=== PATIENT | female | born 1985 | race Caucasian/White ===

== ENCOUNTER 2020-01-23 22:27 | Emergency (ER) | payer SELFPAY ==
[2020-01-23] MEDS ORDERED: ONDANSETRON INJ 4 MG/2 ML VIAL IV ONE (22:51)
[2020-01-23] MEDS ORDERED: SODIUM CHLORIDE 0.9% 1000ML 1,000 ML IVS ONE (22:51)
--- NOTE | 2020-01-23 22:54 | ED.PDOC ---
History of Present Illness - General Chief Complaint: General Stated Complaint: feels dehydrated, awaiting COVID results Time Seen by Provider: 01/23/20 22:45 Source: patient, Vital Signs reviewed, family Exam Limitations: no limitations - History of Present Illness Initial Comments: Patient is a 34-year-old female who presents to the ED feeling dehydrated. States she has had nausea, diarrhea, body aches, low-grade fever to 99 degrees and mild cough for the past 8 days. She was tested for COVID-19 2 days ago but she does not have the results yet. Today she has felt fatigued and dehydrated so came to ED for further evaluation. Reports history of hypothyroid but has not been on thyroid medicine in 2 months. States she has an IUD in place and does not have periods regularly. Abdominal pain, dysuria or near syncope. Allergies/Adverse Reactions: Allergies NO KNOWN ALLERGY Allergy (Verified 01/23/20 22:47) Home Medications: Ambulatory Orders Potassium Chloride Tab [K-Dur] 20 meq PO DAILY #10 tab 01/23/20 Prednisone 40 mg PO DAILY 5 Days #10 tab 01/23/20 Review of Systems - Review of Systems Constitutional: States: fever - low grade, malaise. Denies: chills EENTM: Denies: blurred vision, ear pain, nose congestion Respiratory: States: cough, short of breath Cardiology: Denies: chest pain, palpitations, syncope Gastrointestinal/Abdominal: States: diarrhea, nausea. Denies: abdominal pain, vomiting Genitourinary: Denies: dysuria Musculoskeletal: States: muscle pain Neurological: States: numbness. Denies: headache, paresthesia All other Systems: Reviewed and Negative Family Medical History - Family History Mother Living Status: Hx Family Hypertension: Yes Hx Family Diabetes: Yes Physical Exam - Physical Exam General Appearance: Alert, No apparent distress, Other - resting comfortably on the bed Eye Exam: bilateral normal - PERRL Ears, Nose, Throat: other - moist MM Respiratory: chest non-tender, lungs clear, normal breath sounds, no respiratory distress, no accessory muscle use Cardiovascular/Chest: regular rate, rhythm, no edema Gastrointestinal/Abdominal: non tender, soft, no pulsatile mass, other - NTTP in all quadrants Back Exam: no CVA tenderness Extremity: normal range of motion, non-tender, normal inspection, no pedal edema Neurologic: no motor/sensory deficits, alert, normal mood/affect, oriented x 3 Skin Exam: normal color, warm/dry Progress - Progress Progress: 01/23/20 23:54 Patient presents with 1 week history of low-grade fever, myalgias, diarrhea and mild cough. Vital signs are reassuring. Chest x-ray is unremarkable. Labs show mild hypokalemia that will treat with potassium supplement and she will need to follow-up with PCP for lab recheck within 1 week. She does have a history of hypothyroid and has been off her medication for 2 months. TSH is mildly elevated in ED and have asked her to follow-up with PCP for recheck and medication refill. I have discussed possibility of COVID-19 infection and will treat with course of steroids. She has no hypoxia or respiratory distress and feels comfortable going home and follow-up with her PCP in 1 to 2 days. Strict return precautions given. - Results/Orders Results/Orders: EKG- sinus bradycardia, rate 52, nml interval, no ST abnormality CHEST XRAY CLINICAL HISTORY: short of breath COMPARISON: None. TECHNIQUE: XR CHEST 1 VIEW 01/23/2020 10:50 PM CDT FINDINGS: Cardiac silhouette is normal in size. Lungs are clear without consolidation, atelectasis, mass or edema. There is no pleural effusion. There is no pneumothorax. There are no acute osseous findings. IMPRESSION: Clear lungs. 01/23/20 22:50 IV:Start .ONCE 01/23/20 23:00 EKG .ONCE Laboratory Results - last 24 hr 01/23/20 01/23/20 01/23/20 23:08 23:08 23:08 WBC 5.3 RBC 4.27 Hgb 13.1 Hct 38.0 MCV 89.0 MCH 30.6 MCHC 34.4 RDW 12.7 Plt Count 183 MPV 8.7 Absolute Neuts (auto) 2.20 Absolute Lymphs (auto) 2.60 Absolute Monos (auto) 0.30 Absolute Eos (auto) 0.10 Absolute Basos (auto) 0.10 Neutrophils % 41.8 L Lymphocytes % 49.5 Monocytes % 5.5 Eosinophils % 1.7 Basophils % 1.5 Sodium 137 Potassium 3.0 L Chloride 102 Carbon Dioxide 26 Anion Gap 12.0 BUN 12 Creatinine 0.59 L BUN/Creatinine Ratio 20.3 H Random Glucose 100 Serum Osmolality 273.7 L Calcium 9.1 Total Bilirubin 1.4 H AST 14 ALT 12 Alkaline Phosphatase 33 L Serum Total Protein 6.8 Albumin 4.0 Globulin 2.8 Albumin/Globulin Ratio 1.4 TSH Serum HCG, Qual Negative Urine Color Urine Appearance Urine pH Ur Specific [place] Urine Protein Urine Glucose (UA) Urine Ketones Urine Blood Urine Nitrite Urine Bilirubin Urine Urobilinogen Ur Leukocyte Esterase Urine RBC Urine WBC Ur Epithelial Cells Urine Bacteria 01/23/20 01/23/20 23:08 23:08 WBC RBC Hgb Hct MCV MCH MCHC RDW Plt Count MPV Absolute Neuts (auto) Absolute Lymphs (auto) Absolute Monos (auto) Absolute Eos (auto) Absolute Basos (auto) Neutrophils % Lymphocytes % Monocytes % Eosinophils % Basophils % Sodium Potassium Chloride Carbon Dioxide Anion Gap BUN Creatinine BUN/Creatinine Ratio Random Glucose Serum Osmolality Calcium Total Bilirubin AST ALT Alkaline Phosphatase Serum Total Protein Albumin Globulin Albumin/Globulin Ratio TSH 5.86 H Serum HCG, Qual Urine Color Yellow Urine Appearance Clear Urine pH 6.0 Ur Specific [place] 1.025 Urine Protein Negative Urine Glucose (UA) Negative Urine Ketones Negative Urine Blood Moderate H Urine Nitrite Negative Urine Bilirubin Negative Urine Urobilinogen 1.0 Ur Leukocyte Esterase Trace H Urine RBC 1-3 Urine WBC 3-5 H Ur Epithelial Cells 3-5 Urine Bacteria 0 Departure - Departure Clinical Impression: Suspected COVID-19 virus infection, Hypokalemia, Volume depletion Hypothyroidism Qualifiers: Hypothyroidism type: unspecified Qualified Code(s): E03.9 - Hypothyroidism, unspecified Time of Disposition: 23:52 Disposition: Discharge to Home or Self Care Condition: Good Departure Forms: ED Discharge - Pt. Copy, Patient Portal Self Enrollment Instructions: Coronavirus Disease 2019 (COVID-19) Diet: resume usual diet Activity: increase activity as tolerated Referrals: YOGESH AGUILAR [employer] [Primary Care Provider] - 1-2 Days Prescriptions: Potassium Chloride Tab [K-Dur] 20 meq PO DAILY #10 tab Prednisone 40 mg PO DAILY 5 Days #10 tab Home Medications: Ambulatory Orders Potassium Chloride Tab [K-Dur] 20 meq PO DAILY #10 tab 01/23/20 Prednisone 40 mg PO DAILY 5 Days #10 tab 01/23/20
[2020-01-23] MEDS ORDERED: POTASSIUM CHLORIDE 20 MEQ TAB PO ONE (23:34)
--- NOTE | 2020-01-23 23:46 | RAD ---
CLINICAL HISTORY: short of breath COMPARISON: None. TECHNIQUE: XR CHEST 1 VIEW 01/23/2020 10:50 PM CDT FINDINGS: Cardiac silhouette is normal in size. Lungs are clear without consolidation, atelectasis, mass or edema. There is no pleural effusion. There is no pneumothorax. There are no acute osseous findings. IMPRESSION: Clear lungs. Electronically signed by: Joselito Polk MD 01/23/2020 11:44 PM CDT
[2020-01-23 23:59] VITALS: TEMP 98.2
[2020-01-24 00:13] VITALS: BP 108/67; O2SAT 100
== END 2020-01-24 00:19 | disposition home or self-care (01) ==
LOC: ER 22:27
DX: E87.6 Hypokalemia (principal); E86.9 Volume depletion, unspecified; E03.9 Hypothyroidism, unspecified; R19.7 Diarrhea, unspecified; R11.0 Nausea; R50.9 Fever, unspecified; M79.10 Myalgia, unspecified site; R53.83 Other fatigue; R05 Cough; R06.02 Shortness of breath
CPT/HCPCS: 71045; 80053; 81001; 84443; 84703; 85025; 93005; J2405; J7030